=== PATIENT | female | born 1940 | race African-American/Black ===

== ENCOUNTER 2023-01-23 16:17 | Emergency (ER) | payer BC ==
[~2023-01-23] VITALS: Ht 160 cm; Wt 102.1 kg
[2023-01-23 16:17] VITALS: BP_SYST 152; PULSE 65; RESP 18; TEMP 98.7; O2SAT 94
[~2023-01-23 16:17] MED LIST: ASPI-1155 PO; CETI10CA20 PO; COR25 PO; DOCU-144 PO; LISI20TA30 PO; NALO25TA4 PO; VITD400 PO
[2023-01-23] MEDS ORDERED: BACITRACIN 1 GM OINT TP ONE (16:39)
[2023-01-23] MEDS ORDERED: DIPHTH,PERTUSS(ACELL),TET VAC 0.5 ML VIAL (Tdap) I.M. ONE (17:00)
[2023-01-23 18:13] VITALS: BP_SYST 152; PULSE 65; RESP 18; TEMP 98.7; O2SAT 94
== END 2023-01-23 17:25 | disposition home or self-care (01) ==
LOC: SED 16:17
DX: S61.213A Laceration without foreign body of left middle finger without damage to nail, initial encounter (principal); I10 Essential (primary) hypertension; Z79.899 Other long term (current) drug therapy; W26.0XXA Contact with knife, initial encounter; Y93.89 Activity, other specified; Y92.89 Other specified places as the place of occurrence of the external cause; Y99.8 Other external cause status
CPT/HCPCS: 90715; 99283